=== PATIENT | female | born 1975 | race African-American/Black ===

== ENCOUNTER 2022-09-01 07:53 | Outpatient (CLI) | payer OTHER ==
[~2022-09-01 07:53] MED LIST: KETO10TA2 PO
== END 2022-09-01 08:00 | disposition home or self-care (01) ==
LOC: SONOGRAMA 07:53
PROVIDERS: ATTEND Internal Medicine
DX: E03.9 Hypothyroidism, unspecified (principal)

== ENCOUNTER 2023-02-25 07:12 | Outpatient (CLI) | payer OTHER | END 2023-02-25 07:16 | disposition home or self-care (01) | LOC: LAB 07:12 | PROVIDERS: ATTEND Internal Medicine | DX: Z13.1 Encounter for screening for diabetes mellitus (principal); Z13.220 Encounter for screening for lipoid disorders; Z13.29 Encounter for screening for other suspected endocrine disorder; E55.9 Vitamin D deficiency, unspecified ==

== ENCOUNTER 2023-04-21 01:33 | Outpatient (CLI) | payer OTHER | END 2023-04-21 01:43 | disposition home or self-care (01) | LOC: PPH VACUNA 01:33 | PROVIDERS: ATTEND Emergency Medicine Pediatric Emergency Medicine | DX: Z23 Encounter for immunization (principal) | CPT/HCPCS: 90686; G0008 ==

== ENCOUNTER 2024-04-11 10:30 | Outpatient (CLI) | payer OTHER | END 2024-04-11 10:45 | disposition home or self-care (01) | LOC: PPH VACUNA 10:30 | PROVIDERS: ATTEND Emergency Medicine Pediatric Emergency Medicine | DX: Z23 Encounter for immunization (principal) ==

== ENCOUNTER → 2024-12-13 07:05 | Outpatient (CLI) | payer OTHER ==
[2024-12-13 07:28] LABS: BASO % 0.2 % (0.1-1.2); EOS # 0.21 (0.04-0.54); EOS % 2.6 % (0.7-7.0); HEMATOCRIT 36.7 % (34.1-44.9); HEMOGLOBIN 12.2 g/dL (11.2-15.7); LYMPH # 2.35 (1.18-3.74); LYMPH % 28.6 % (19.3-53.1); MEAN CORPUSCULAR HEMOGLOBIN 32.6 pg (25.6-32.2); MONO # 0.62 (0.24-0.82); MONO % 7.6 % (4.7-12.5); NEUT # 4.98 (1.56-6.13); NEUT % 60.6 % (34.0-71.1); PLATELET COUNT 243 K/uL (163-369); RED BLOOD COUNT 3.74 M/uL (3.93-5.22); RED CELL DISTRIBUTION WIDTH 13.1 % (11.6-14.4)
[2024-12-13 07:38] LABS: PH,URINE 6.5 (5.0-8.0); URINE APPEARANCE Clear; URINE BILIRRUBIN Negative (NEGATIVE); URINE BLOOD Negative; URINE COLOR Yellow; URINE GLUCOSE Negative (NEGATIVE); URINE KETONE Negative (NEGATIVE); URINE LEUKOCYTE Negative; URINE NITRATE Negative; URINE PROTEIN Negative (NEGATIVE)
[2024-12-13 07:39] LABS: URINE BACTERIA 267.9 uL (0.0-1933); URINE EPITHELIAL CELLS 7.7 uL (0.0-38.8)
[2024-12-13 07:40] LABS: URINE RBC 1.6 uL (0.0-20.8); URINE WBC 1.7 uL (0.0-23.2)
[2024-12-13 09:47] LABS: ALBUMIN 3.4 gm/dL (3.4-5.0); ALKALINE PHOSPHATASE 72 U/L (50-136); ALT/SGPT 28 U/L (12-78); ANION GAP 7 (10.0-20.0); AST/SGOT 19 U/L (15-37); BILIRUBIN TOTAL 0.29 mg/dL (0.3-1.2); BILIRUBIN,CONJUGATED < 0.10 mg/dL (0.0-0.2); BILIRUBIN,UNCONJUGATED 0.19 mg/dL (0.0-0.6); BLOOD UREA NITROGEN 18 mg/dL (7-18); BUN CREA RATIO 20 (7.0-25.0); CARBON DIOXIDE 31 mEq/L (21-32); CHLORIDE 109 mmol/L (98-107); CHOLESTEROL 156 mg/dL (0-200); CREATININE SERUM 0.89 mg/dL (0.55-1.02); FREE TRIODOTIRONINE 2.22 pg/ml (2.18-3.98); GFR 67.69; GLOBULINA 3.2 G/DL (2.4-3.5); GLUCOSE FASTING 99 mg/dL (65-100); HDL 52 mg/dl (40-60); LDL 66 mg/dl (0-130); OSMOLALITY SERUM 287 MOSM/KG (275-295); POTASSIUM 4.01 mEq/L (3.5-5.1); SODIUM 143 mmol/L (136-145); T4 FREE 0.92 NG/ML (0.76-1.46); TOTAL PROTEIN 6.6 gm/dL (6.4-8.2); TRIGLYCERIDES 189 mg/dL (0-150); TSH 0.937 uIU/mL (0.358-3.74); VLDL 37 (0-39)
== END | disposition home or self-care (01) ==
LOC: LAB 07:05
PROVIDERS: ATTEND Internal Medicine
DX: E55.9 Vitamin D deficiency, unspecified (principal); I10 Essential (primary) hypertension; Z13.1 Encounter for screening for diabetes mellitus; Z13.220 Encounter for screening for lipoid disorders; Z13.29 Encounter for screening for other suspected endocrine disorder

== ENCOUNTER 2025-01-09 13:54 | Outpatient (CLI) | payer OTHER | END 2025-01-09 13:56 | disposition home or self-care (01) | LOC: MAMO-SONO 13:54 | PROVIDERS: ATTEND Obstetrics & Gynecology | DX: N60.11 Diffuse cystic mastopathy of right breast (principal); Z12.31 Encounter for screening mammogram for malignant neoplasm of breast ==

== ENCOUNTER 2025-04-25 07:24 | Outpatient (CLI) | payer OTHER | END 2025-04-25 07:34 | disposition home or self-care (01) | LOC: PPH VACUNA 07:24 | PROVIDERS: ATTEND Emergency Medicine Pediatric Emergency Medicine | DX: Z23 Encounter for immunization (principal) ==